=== PATIENT | female | born 1975 ===

== ENCOUNTER → 2024-03-18 | Outpatient (CLI) | payer OTHER, MEDICAID ==
[~2024-03-18] MED LIST: ALBUTEROL SULF 2.5 MG/0.5ML(0.5%) NEB SOLN ONE
--- NOTE | 2024-03-20 14:11 | DVHNC2 ---
Procedure - March 18, 2024 Pulmonary function test interpretation. 1. No obstructive or restrictive ventilatory defect. 2. No significant bronchodilator response. Of note FEV1 improved by 70 mL. 3. Vital capacity is within normal limits, 97% of predicted. 4. DLCO was not performed. SANDY GAN MD Mar 20, 2024 14:11
== END | disposition home or self-care (01) ==
LOC: RT 15:17
PROVIDERS: ATTEND Internal Medicine Pulmonary Disease
DX: R06.00 Dyspnea, unspecified (principal); R05.3 Chronic cough
CPT/HCPCS: 94060; 94727